=== PATIENT | male | born 1975 | race Caucasian/White ===

== ENCOUNTER 2020-03-12 10:18 | Emergency (ER) | payer BC, SELFPAY ==
[2020-03-12 10:31] VITALS: BP 133/92; PULSE 60; RESP 16; TEMP 36.8; O2SAT 99; BMI 20.7
--- NOTE | 2020-03-12 10:35 | ECG_ITS ---
APPROVED REPORT Exam: Resting ECG HR:60 bpm ECG Measurements Heart Rate 60 AXES NH 126 P 34 QRSd 106 QRS 59 QT 428 T 37 QTc 428 <Conclusion> Normal sinus rhythm with sinus arrhythmia Incomplete right bundle branch block Borderline ECG Electronically signed by : Darren Velasquez, 03/15/2020 17:14:33
--- NOTE | 2020-03-12 10:36 | [facility].EDGENADL ---
ED Disposition Clinical Impression: Lightheadedness Disposition: Home, Self-Care Condition on Discharge: Good Instructions: DI for Dizziness-Nonvertigo Additional Instructions: Rest, drink plenty of fluids. Follow-up with primary care provider next week. Your blood sugar was 151 today, follow-up this result with your primary care provider. Referrals: Provider,Referral, [Primary Care Provider] - - Critical Care Critical Care Time: No Attestation: On , the high probability of a clinically significant, sudden or life threatening deterioration of the following system(s) required my full and direct attention, intervention and personal management. The time I documented below is in addition to time spent performing reported procedures but includes the following listed in this critical care notation. Medical Decision Making - Johnny Inquiry Pt receiving controlled substance: No Vital Signs: 03/12/20 10:31 03/12/20 10:52 03/12/20 12:04 Temperature 98.3 F Temperature Source Oral Pulse Rate [Right Brachial] 60 60 59 L Respiratory Rate 16 Blood Pressure [Right Arm] 133/92 H 140/84 128/74 Blood Pressure Mean [Right Arm] 105 102 92 Blood Pressure Source [Right Arm] Automatic Cuff Automatic Cuff Automatic Cuff Blood Pressure Position [Right Arm] Sitting Supine Sitting 02 Sat by Pulse Oximetry 99 97 99 Oxygen Delivery Method Room Air Room Air Room Air 03/12/20 12:52 Temperature Temperature Source Pulse Rate [Right Brachial] 68 Respiratory Rate Blood Pressure [Right Arm] 127/79 Blood Pressure Mean [Right Arm] 95 Blood Pressure Source [Right Arm] Automatic Cuff Blood Pressure Position [Right Arm] Sitting 02 Sat by Pulse Oximetry 98 Oxygen Delivery Method Room Air - Lab Data Lab Results 03/12/20 10:35: WBC 5.1, RBC 5.41, Hgb 16.5, Hct 47.9, MCV 88.6, MCH 30.5, MCHC 34.5, RDW 14.0, Plt Count 230, MPV 7.5, Neut % (Auto) 59.2, Lymph % (Auto) 30.6, Preble % (Auto) 6.3, Eos % (Auto) 3.4, Baso % (Auto) 0.5, Neut # (Auto) 3.0, Lymph # (Auto) 1.6, Preble # (Auto) 0.3, Eos # (Auto) 0.2, Baso # (Auto) 0.0 03/12/20 10:35: Sodium 134 L, Potassium 3.8, Chloride 100, Carbon Dioxide 26, Anion Gap 11.8, BUN 19, Creatinine 0.90, Estimated Creat Clear 92, Estimated GFR 91, Est GFR ( Amer) 110, Glucose 151 H, Calcium 9.5, Total Bilirubin 0.8, AST 37, ALT 24, Alkaline Phosphatase 87, Troponin I < 0.01, Total Protein 8.2, Albumin 4.9, Globulin 3.3 H, Albumin/Globulin Ratio 1.5 Result diagrams: 03/12/20 10:35 03/12/20 10:35 Orders (Tests/Meds): ED MEDICATIONS Discontinued Medications Generic Name Dose Route Start Last Admin Trade Name Freq PRN Reason Stop Dose Admin Ondansetron HCl 4 mg 03/12/20 10:51 03/12/20 10:55 Zofran 4mg/2ml Vial IV 03/12/20 10:52 4 mg ONCE ONE Administration Sodium Chloride 1,000 ml 03/12/20 10:50 03/12/20 10:55 Sod Chlor 0.9% 1000ml Bag IV 03/12/20 10:51 1,000 ml BOLUS ONE Administration ORDERS Category Date Time Status Troponin I Q3H Lab 03/12/20 13:45 Ordered Troponin I Q3H Lab 03/12/20 16:45 Ordered - ECG Data Tracing #1 EKG interpreted by Moncho Jamison MD: Rhythm: sinus Rate: 60 [place]: normal Ectopy: none Conduction: Incomplete right bundle branch block ST Segment Changes: none T Wave Changes: none Q Waves: none No evidence of acute ischemia or injury - Reevaluation(s) Time: 12:52 Reevaluation #1: Patient says he feels much better, I feel normal . Advised of elevated blood sugar and need for follow-up with primary care provider for fasting specimen. General Adult HPI - General Chief complaint: Dizziness Stated complaint: dizzy weak nause tingling Time Seen by Provider: 03/12/20 10:40 Mode of Arrival: Ambulatory Limitations: No Limitations Description of Symptoms (Recalled from ER Triage Doc. by RN): Pt advises around 7am he started feeling dizzy and laid down then began to feel nauseated, weak and like he wa
[2020-03-12 10:52] VITALS: BP 140/84; PULSE 60; O2SAT 97
[2020-03-12 10:58] LABS: Basophils % 0.5 % (0.1-2.0); Eosinophils # 0.2 K/mm3 (0.0-0.4); Eosinophils % 3.4 % (0.1-12.0); Hematocrit 47.9 % (42.0-52.0); Hemoglobin 16.5 g/dL (14.1-18.0); Lymphocytes # 1.6 K/mm3 (0.7-4.5); Lymphocytes % 30.6 % (10-50); Mean Corpuscular HGB Conc 34.5 g/dL (31.8-35.4); Mean Corpuscular Hemoglobin 30.5 pg (27.0-31.2); Mean Corpuscular Volume 88.6 fl (80-94); Mean Platelet Volume 7.5 fl (7.4-10.4); Monocytes # 0.3 K/mm3 (0.1-1.0); Monocytes % 6.3 % (1.7-9.3); Neutrophils % 59.2 % (37.0-80.0); Platelet Count 230 K/mm3 (142-424); Red Blood Count 5.41 M/mm3 (4.60-6.20); White Blood Count 5.1 K/mm3 (4.8-10.8)
[2020-03-12 11:11] LABS: Alanine Aminotransferase 24 U/L (12-78); Albumin Level 4.9 g/dl (3.5-5.0); Albumin/Globulin Ratio 1.5 (1.1-1.8); Alkaline Phosphatase 87 U/L (38-126); Anion Gap 11.8 mEq/L (5-15); Aspartate Amino Transferase 37 U/L (17-59); Bilirubin,Total 0.8 mg/dl (0.2-1.3); Blood Urea Nitrogen 19 mg/dl (9-20); Calcium 9.5 mg/dl (8.4-10.2); Carbon Dioxide 26 mmol/L (22.0-30.0); Chloride 100 mmol/L (98-107); Creatinine Clearance Estimated 92 mL/min (50-200); Estimated Glomerular Filt Rate 91 ml/min (>60); GFR (African American) 110 ML/MIN (>60); Globulin 3.3 g/dL (1.3-3.2); Glucose 151 mg/dl (74-100); Potassium 3.8 mmoL/L (3.5-5.1); Sodium 134 mmol/L (136-145); Total Protein,Serum 8.2 g/dl (6.3-8.2)
[2020-03-12 11:26] LABS: Troponin I < 0.01 ng/ml (0.00-0.034)
[2020-03-12 12:04] VITALS: BP 128/74; PULSE 59; O2SAT 99
--- NOTE | 2020-03-12 12:50 | PC.NURSE ---
Pt states to Tati Slade,SRNA that he feels completely normal at this time.
[2020-03-12 12:52] VITALS: BP 127/79; PULSE 68; O2SAT 98
[2020-03-12 13:00] VITALS: BP 119/77; PULSE 76; RESP 16; TEMP 36.8; O2SAT 98
== END 2020-03-12 13:13 | disposition home or self-care (01) ==
PROVIDERS: Emergency Provider Emergency Medicine
DX: R42 Dizziness and giddiness (principal); R20.2 Paresthesia of skin; R73.9 Hyperglycemia, unspecified
CPT/HCPCS: 80053; 84484; 85025; 93005; 96365; 96375; 99283; J2405

== ENCOUNTER → 2020-11-16 16:14 | Outpatient (CLI) | payer BC, SELFPAY ==
--- NOTE | 2020-11-16 16:20 | XR_ITS ---
PROCEDURE: XR SHOULDER LT MIN 2V CLINICAL INDICATION: Pain in unspecified shoulder Left shoulder pain COMPARISON: No exams were available for comparison FINDINGS: No fracture or dislocation. No lytic or blastic change. There is normal mineralization. The joint spaces are well-preserved. No significant degenerative/arthritic changes. No erosive changes evident. Other findings:None. IMPRESSION: No acute findings. Dictated by: Yinka Lorenzana MD 11/16/2020 17:24 Yinka Lorenzana MD in [place] 11/16/2020 17:24
== END ==
PROVIDERS: PCP Family Medicine; Visit Provider Family Medicine
DX: M25.519 Pain in unspecified shoulder (principal)
CPT/HCPCS: 73030

== ENCOUNTER → 2020-12-10 13:25 | Outpatient (CLI) | payer BC, SELFPAY ==
--- NOTE | 2020-12-10 13:31 | XR_ITS ---
PROCEDURE: XR SHOULDER LT MIN 2V CLINICAL INDICATION: left shoulder pain COMPARISON: CR XR SHOULDER LT MIN 2V from 11/16/2020 FINDINGS: No fracture or dislocation. No lytic or blastic change. There is normal mineralization. The joint spaces are well-preserved. No significant degenerative/arthritic changes. No erosive changes evident. Other findings:None. IMPRESSION: No acute findings. Dictated by: Anupama Reddy 12/10/2020 14:57 Anupama Reddy in [facility] 12/10/2020 14:59
== END ==
PROVIDERS: PCP Family Medicine; Visit Provider Orthopaedic Surgery
DX: M25.512 Pain in left shoulder (principal)
CPT/HCPCS: 73030

== ENCOUNTER → 2020-12-23 12:33 | Outpatient (CLI) | payer BC, SELFPAY ==
--- NOTE | 2020-12-23 12:43 | MR_ITS ---
PROCEDURE: MRI ARTHROGRAM LEFT SHOULDER LEFT SHOULDER ARTHROGRAM CLINICAL INDICATION: LEFT SHOULDER PAIN Pt c/o constant lt shoulder pain [id number] with weakness in lt arm. COMPARISON: CR,RF IR ARTHROGRAM SHOULDER LT from 12/23/2020 MR MR SHOULDER LT W CON from 12/23/2020 FINDINGS: Left shoulder arthrogram: Following obtaining informed consent and time-out procedure under aseptic conditions and local anesthesia with 1 percent buffered lidocaine 21 gauge spinal needle was inserted into the left shoulder joint under fluoroscopic guidance with mixture of 12 mL Isovue-300, gadolinium, and lidocaine was injected. The patient tolerated the procedure well without evidence of immediate complication. The post injection images demonstrates normal localization of contrast within the left shoulder joint with no evidence of rotator cuff tear. No evidence of adhesive capsulitis. Patient was then transferred to MRI for MRI arthrogram. MRI arthrogram: Normal localization of contrast. No evidence of subdeltoid contrast that would indicate a rotator cuff tear. There is suggestion of discontinuity along the inferior surface of the supraspinatus tendon near the greater tuberosity suggesting a partial tear with less than 1/2 thickness of the supraspinatus tendon. The subscapularis, infraspinatus, and teres minor tendons appear intact. The bicipital tendon is in place. A Piero complex is present along the superior anterior glenoid labrum. There is diffuse increased T2 signal involving the acromioclavicular joint region.. There is mild subacromial stenosis. IMPRESSION: 1. No evidence of internal derangement of the shoulder. 2. Edema of the acromioclavicular joint with subacromial stenosis. Dictated by: Yinka Lorenzana MD 01/06/2021 14:18 Yinka Lorenzana MD in [facility] 01/06/2021 14:18
--- NOTE | 2020-12-23 13:59 | IR_ITS ---
PROCEDURE: IR ARTHROGRAM SHOULDER LT CLINICAL INDICATION: LEFT SHOULDER PAIN Pt c/o constant lt shoulder pain [id number] with weakness in lt arm. COMPARISON: MR MR SHOULDER LT W CON from 12/23/2020 FINDINGS: Technique: Following obtaining informed consent and time-out procedure under aseptic conditions and local anesthesia with 1 percent buffered lidocaine, a 22 gauge needle was inserted into the shoulder joint capsule via the anterior subcoracoid approach. Approximately 12 cc of a mixture of gadolinium, Isovue-300, and lidocaine was injected and noted to fill the shoulder joint as expected. The patient tolerated the procedure well without evidence of immediate complication. Images were then obtained. The patient was then taken to MRI for MRI arthrogram. Fluoroscopy time: 54 seconds. Arthrographic there was normal localization of contrast within the shoulder joint. There is no evidence of subacromial extravasation that would indicate a rotator cuff tear. Contrast injected freely. No evidence of adhesive capsulitis. IMPRESSION: Uneventful and unremarkable fluoroscopic guided arthrogram of the left shoulder. Please see MRI report for further details. Dictated by: Yinka Lorenzana MD 12/26/2020 11:56 Yinka Lorenzana MD in [place] 12/26/2020 11:56
== END ==
PROVIDERS: PCP Family Medicine; Visit Provider Orthopaedic Surgery
DX: M25.512 Pain in left shoulder (principal)
CPT/HCPCS: 73040; 73222; Q9967

== ENCOUNTER → 2021-10-20 08:00 | Outpatient (CLI) | payer BC, SELFPAY ==
[2021-10-20 08:57] LABS: Basophils # 0.1 K/mm3 (0-0.2); Basophils % 2.1 % (0.1-2.0); Eosinophils # 0.3 K/mm3 (0.0-0.4); Eosinophils % 5.3 % (0.1-12.0); Hematocrit 49.8 % (42.0-52.0); Hemoglobin 16.1 g/dL (14.1-18.0); Lymphocytes # 1.8 K/mm3 (0.7-4.5); Lymphocytes % 33.9 % (10-50); Mean Corpuscular HGB Conc 32.3 g/dL (31.8-35.4); Mean Corpuscular Hemoglobin 29.9 pg (27.0-31.2); Mean Corpuscular Volume 92.8 fl (80-94); Mean Platelet Volume 7.8 fl (7.4-10.4); Monocytes # 0.4 K/mm3 (0.1-1.0); Monocytes % 6.8 % (1.7-9.3); Neutrophils # 2.7 K/mm3 (1.8-7.8); Platelet Count 251 K/mm3 (142-424); Red Blood Count 5.36 M/mm3 (4.60-6.20); White Blood Count 5.2 K/mm3 (4.8-10.8)
[2021-10-20 09:17] LABS: Chloride 105 mmol/L (98-107)
[2021-10-20 09:18] LABS: Potassium 4.7 mmoL/L (3.5-5.1); Sodium 137 mmol/L (136-145)
[2021-10-20 09:20] LABS: Alanine Aminotransferase 36 U/L (12-78); Alkaline Phosphatase 78 U/L (38-126); Aspartate Amino Transferase 35 U/L (17-59); Bilirubin,Total 0.9 mg/dl (0.2-1.3); Blood Urea Nitrogen 20 mg/dl (9-20); Estimated Glomerular Filt Rate 90 ml/min (>60); GFR (African American) 109 ML/MIN (>60)
[2021-10-20 09:21] LABS: Albumin Level 4.5 g/dl (3.5-5.0); Albumin/Globulin Ratio 1.7 (1.1-1.8); Anion Gap 6.7 mEq/L (5-15); Calcium 8.7 mg/dl (8.4-10.2); Carbon Dioxide 30 mmol/L (22.0-30.0); Chol/HDL Ratio 2.8 (1-3.5); Cholesterol 220 mg/dl (140-200); Globulin 2.6 g/dL (1.3-3.2); Glucose 93 mg/dl (74-100); HDL Cholesterol 78 mg/dl (40-60); Total Protein,Serum 7.1 g/dl (6.3-8.2); Triglycerides 89 mg/dl (30-150); VLDL Cholesterol 18 mg/dL (0-40)
[2021-10-20 09:22] LABS: Erythrocyte Sedimentation Rate 5 mm/hr (0-15)
[2021-10-20 09:34] LABS: Direct LDL Cholesterol 94.13 mg/dL (100-129)
[2021-10-20 09:54] LABS: Thyroid Stimulating Hormone 0.76 uIU/mL (0.465-4.68)
[2021-10-20 11:14] LABS: Uric Acid 3.4 mg/dl (3.5-8.5)
[2021-10-20 11:45] LABS: Prostate Specific Ag Screen 0.4 ng/ml (0.0-4.0)
[2021-10-21 15:02] LABS: RA Latex Turbid. <10.0 IU/mL (<14.0)
[2021-10-22 10:12] LABS: Antinuclear Antibodies, IFA Negative (.)
== END ==
PROVIDERS: PCP Physician Assistant; Visit Provider Physician Assistant
DX: M25.50 Pain in unspecified joint (principal); Z13.220 Encounter for screening for lipoid disorders; Z12.5 Encounter for screening for malignant neoplasm of prostate
CPT/HCPCS: 36415; 80053; 80061; 84443; 84550; 85025; 85651; 86038; 86431; G0103